=== PATIENT | male | born 1995 | race Caucasian/White ===

== ENCOUNTER 2017-09-07 22:17 | Emergency (ER) | payer OTHER ==
[~2017-09-07] VITALS: Ht 188 cm; Wt 106.7 kg
[2017-09-07 22:21] VITALS: BP 144/83
== END 2017-09-07 23:23 | disposition home or self-care (01) ==
LOC: ED 23:05
DX: L03.115 Cellulitis of right lower limb (principal); T78.40XA Allergy, unspecified, initial encounter; X58.XXXA Exposure to other specified factors, initial encounter
CPT/HCPCS: 99283